=== PATIENT | male | born 1985 | race Caucasian/White ===

== ENCOUNTER → 2017-05-07 09:26 | Outpatient (CLI) | payer OTHER, SELFPAY ==
[2017-05-07 09:34] LABS: Microscopic, Urine URINE MICROSCOPIC (MICROSCOPIC)
[2017-05-07 10:58] LABS: Basophils # 0.1 K/mm3 (0-0.2); Basophils % 1.1 % (0.1-2.0); Eosinophils # 0.1 K/mm3 (0.0-0.4); Eosinophils % 1.7 % (0.1-12.0); Hematocrit 46.8 % (42.0-52.0); Hemoglobin 15.6 g/dL (14.1-18.0); Lymphocytes # 2.6 K/mm3 (0.7-4.5); Lymphocytes % 45.5 K/mm3 (10-50); Mean Corpuscular HGB Conc 33.3 g/dL (31.8-35.4); Mean Corpuscular Hemoglobin 28.9 pg (27.0-31.2); Mean Corpuscular Volume 86.6 fl (80-94); Mean Platelet Volume 7.3 fl (7.4-10.4); Monocytes # 0.3 K/mm3 (0.1-1.0); Monocytes % 5.6 % (1.7-9.3); Neutrophils # 2.6 K/mm3 (1.8-7.8); Platelet Count 402 K/mm3 (142-424); Red Blood Count 5.41 M/mm3 (4.60-6.20); Red Cell Distribution Width 13.3 % (11.5-17.5); White Blood Count 5.6 K/mm3 (4.8-10.8)
[2017-05-07 11:12] LABS: Alanine Aminotransferase 58 U/L (12-78); Albumin Level 4.2 gm/dL (3.4-5.0); Alkaline Phosphatase 78 U/L (46-116); Aspartate Amino Transferase 16 U/L (15-37); Bilirubin,Total 0.4 mg/dL (0.2-1.0); Blood Urea Nitrogen 17 mg/dL (7-18); Calcium 9.3 mg/dL (8.5-10.1); Carbon Dioxide 30 mmol/L (21.0-32.0); Chloride 103 mmol/L (98-107); Chol/HDL Ratio 6.9 (1-3.5); Cholesterol 243 mg/dL (140-200); Creatinine,Serum 1.09 mg/dL (0.70-1.30); Estimated Glomerular Filt Rate 78 ml/min (>60); GFR (African American) 94 ML/MIN (>60); Globulin 4.4 gm/dl (1.3-3.2); Glucose 99 mg/dL (74-106); HDL Cholesterol 35 mg/dL (27-67); LDL Cholesterol 163 mg/dL (0-130); Sodium 141 mmol/L (136-145); Total Protein,Serum 8.6 gm/dL (6.4-8.2); Triglycerides 226 mg/dL (30-200); VLDL Cholesterol 45 mg/dL (0-40)
[2017-05-07 11:25] LABS: Appearance,Urine CLEAR (Clear); Bilirubin,Urine Negative (Negative); Blood, Urine Negative (Negative); Color,Urine YELLOW (Yellow); Glucose,Urine (UA) Negative (Negative); Ketones,Urine Negative (Negative); Leukocyte Esterase,Urine Negative (Negative); Nitrate,Urine Negative (Negative); Protein,Urine Negative (Negative); Specific Gravity, Urine 1.015 (1.005-1.030); Urobilinogen,Urine 0.2 EU/dl (0.2)
[2017-05-07 14:16] LABS: Bacteria,Urine Trace /lpf; Squamous Epithelial Cell,Urine Occasional #/hpf (0-5)
[2017-05-08 18:51] LABS: Microalbumin, Urine <3.0 ug/mL (Not Estab.)
== END ==
PROVIDERS: PCP Physician Assistant; Visit Provider Physician Assistant
DX: I10 Essential (primary) hypertension (principal); E78.5 Hyperlipidemia, unspecified
CPT/HCPCS: 36415; 80053; 80061; 81001; 82043; 82947; 85025

== ENCOUNTER → 2019-02-22 09:04 | Outpatient (CLI) | payer BC, SELFPAY ==
--- NOTE | 2019-02-22 09:11 | US_ITS ---
PROCEDURE: US ABDOMEN LIMITED CLINICAL INDICATION: RUQ PAIN Right upper quadrant pain and nausea after eating COMPARISON: No exams were available for comparison FINDINGS: PANCREAS: Unremarkable. No obvious mass or abnormal fluid collection. No ductal dilatation LIVER: No focal liver lesions demonstrated. Homogeneous echogenicity. No intrahepatic biliary ductal dilatation evident. There is appropriate direction of blood flow within a non dilated portal vein. Fatty liver noted. RIGHT KIDNEY: Unremarkable. Normal size and echogenicity. No hydronephrosis GALLBLADDER: No gallstones, gallbladder wall thickening, pericholecystic fluid, or biliary dilatation. IMPRESSION: Fatty liver otherwise negative right upper quadrant ultrasound. No gallstones apparent Dictated by: Sreekanth Milton MD 02/22/2019 10:20 Electronically signed by Sreekanth Milton MD in [place] 02/22/2019 10:20
== END ==
PROVIDERS: PCP Family Medicine; Visit Provider Physician Assistant
DX: R10.11 Right upper quadrant pain (principal)
CPT/HCPCS: 76705

== ENCOUNTER → 2019-03-02 10:32 | Outpatient (CLI) | payer BC, SELFPAY ==
--- NOTE | 2019-03-02 10:38 | NM_ITS ---
PROCEDURE: NM HEPATOBILIARY W PHARM CLINICAL INDICATION: RUQ PAIN Right upper quadrant pain COMPARISON: No exams were available for comparison TECHNIQUE: DOSE: 8.38 mCi technetium mild view and 2 mcg of CCK. There was slight pain reported with CCK infusion FINDINGS: Homogeneous activity is present within the hepatic parenchyma. Activity is present in the gallbladder by 5 minutes. Activity is present in the small bowel by 20 minutes. The gallbladder ejection fraction is calculated to be 23 percent. Mild pain was reported with CCK infusion IMPRESSION: 1. No evidence of common or cystic duct obstruction. 2. Low gallbladder ejection fraction with some pain reported with CCK infusion which may be related to gallbladder dyskinesia The Dictated by: Sreekanth Milton MD 03/03/2019 09:37 Electronically signed by Sreekanth Milton MD in [place] 03/03/2019 09:37
== END ==
PROVIDERS: PCP Family Medicine; Visit Provider Physician Assistant
DX: R10.11 Right upper quadrant pain (principal)
CPT/HCPCS: 78227; A9537; J2805

== ENCOUNTER → 2019-11-24 11:15 | Outpatient (CLI) | payer BC, SELFPAY ==
--- NOTE | 2019-11-24 11:21 | XR_ITS ---
PROCEDURE: XR CERVICAL SPINE 5V CLINICAL INDICATION: ACUTE PAIN OF LEFT SHOULDER COMPARISON: No exams were available for comparison FINDINGS: There is straightening of the normal curvature. C1 through C7 appear intact. There is minor posterior osteophytic spurring at the C3-4 and C4-5 levels. Oblique films show essentially normal neural foramina right side, there is moderate neural foraminal narrowing at the C3-4 and C4-5 levels left side particularly C4-5. The prevertebral soft tissues are normal and the odontoid is normal. IMPRESSION: Moderate neural foraminal narrowing left side C3-4 and C4-5 secondary to a combination of posterior osteophytic spurring and spurring of the uncinate joints Dictated by: Dr. Cortez Giang MD 11/24/2019 12:21 Dr. Cortez Giang MD in [place] 11/24/2019 12:21
== END ==
PROVIDERS: PCP Family Medicine; Visit Provider Family Medicine
DX: M25.512 Pain in left shoulder (principal); M54.2 Cervicalgia
CPT/HCPCS: 72050

== ENCOUNTER → 2021-01-28 15:49 | Outpatient (CLI) | payer BC, SELFPAY ==
--- NOTE | 2021-01-28 15:53 | XR_ITS ---
PROCEDURE: XR KNEE LT 3V CLINICAL INDICATION: LEG PAIN COMPARISON: No exams were available for comparison FINDINGS: No fracture or dislocation. No lytic or blastic change. There is normal mineralization. The joint spaces are well-preserved. No significant degenerative/arthritic changes. No erosive changes evident. Other findings:None. IMPRESSION: No acute findings. Dictated by: Sreekanth Milton MD 01/28/2021 16:10 Sreekanth Milton MD in [place] 01/28/2021 16:10
== END ==
PROVIDERS: PCP Family Medicine; Visit Provider Nurse Practitioner Family
DX: M79.605 Pain in left leg (principal); M25.562 Pain in left knee
CPT/HCPCS: 73562

== ENCOUNTER → 2021-02-06 13:30 | Outpatient (CLI) | payer BC, SELFPAY ==
--- NOTE | 2021-02-06 13:38 | CA_ITS ---
APPROVED REPORT Left Lower Extremity Venous Study for DVT. Bottom Crane Operator: CT Indications Lower Extremity Pain: Left TWISTED ANKLE 4 WKS AGO, L CALF PAIN X 2-2 1/2 WKS Vein Imaging CFV (L): compressive, spontaneous, phasic, augmentation SFJ (L): compressive, spontaneous, phasic, augmentation FEM (L): compressive, spontaneous, phasic, augmentation POP (L): compressive, spontaneous, phasic, augmentation DFV (L): compressive, spontaneous, phasic, augmentation PTV (L): compressive, spontaneous, phasic, augmentation GSV (L): compressive, spontaneous, phasic, augmentation SSV (L): compressive, spontaneous, phasic, augmentation Peroneals (L):compressive, spontaneous, phasic, augmentation GAS (L): compressive, spontaneous, phasic, augmentation Findings LLE negative for DVT/SVT Vessels fully compressible. Conclusion LLE negative for DVT/SVT Vessels fully compressible. Electronically signed by : Sreekanth Milton MD 02/06/2021 17:01:45
== END ==
LOC: RT 13:31
PROVIDERS: PCP Family Medicine; Visit Provider Nurse Practitioner Family
DX: M79.662 Pain in left lower leg (principal)
CPT/HCPCS: 93971

== ENCOUNTER → 2021-06-09 17:04 | Outpatient (CLI) | payer BC, SELFPAY | PROVIDERS: PCP Physician Assistant; Visit Provider Physician Assistant | DX: R06.81 Apnea, not elsewhere classified (principal); R06.83 Snoring; R53.83 Other fatigue | CPT/HCPCS: G0399 ==

== ENCOUNTER 2022-06-20 14:18 | Emergency (ER) | payer BC, SELFPAY ==
[2022-06-20 14:40] VITALS: BP 127/87; PULSE 85; RESP 19; TEMP 37.5; O2SAT 99; BMI 36.8
--- NOTE | 2022-06-20 15:22 | EXP.UTC ---
Discharge Plan Disposition Patient Disposition: Home, Self-Care Condition: Good Prescriptions Prescriptions: New methylprednisolone [Medrol ([place])] 4 mg tablets,dose pack See Rx Instructions .Route .COMPLEX 6 Days Qty: 21 0RF Rx Instructions: taper pack; amoxicillin-pot clavulanate 875-125 mg Tablet 1 tab PO Q12H Qty: 20 0RF No Action rosuvastatin 20 mg tablet 20 mg PO DAILY Label Comments: TAKE 1 TABLET BY MOUTH EVERY DAY lisinopril-hydrochlorothiazide 10-12.5 mg tablet 1 tab PO DAILY Label Comments: TAKE 1 TABLET BY MOUTH EVERY DAY Referrals Follow up/Referrals: Ceeclia Roger PA [Primary Care Provider] - See instructions Activity Restrictions/Add. Instructions Additional Instructions/Restrictions: *Monitor Temp, Over the counter Motrin or Tylenol as directed/as needed Tylenol every 4 hours and Motrin every 6 hours (as long as your family doctor has told you that you can take it) for fever or pain. and straight to ER if unable to lower temp less than 101.0 after medication given Take medication as prescribed? *Sleep elevated *Humidifier/Vaporizer Follow up if no improvement or any worsening of symptoms Follow up IMMEDIATELY for new or worsening symptoms or no Noticeable improvement over the next 48-72 hours. 911 for difficulty breathing or swallowing Clinical Impressions Clinical Impression: Sinusitis Instructions Patient Instructions: DI for Sinusitis, Sinusitis Discharge ED Provider: Velia Moreno [facility] General Stated complaint: Congestion, drainage, sinus pain Mode of Arrival: Ambulatory Source of Information: Patient Limitations: No Limitations Time Seen by Provider: 06/20/22 15:22 Description of Symptoms (Recalled from Triage Doc. by RN): sinus pressure, cough, and sinus pain HEENT Symptoms (Recalled from RN notes): Yes Resp Symptoms (Recalled from RN notes): No Skin Symptoms (Recalled from RN notes): No MS Symptoms (Recalled from RN notes): No Functional Status (Recalled from RN notes): n/a History of Present Illness Provider Complaint: Patient states that for over a week he has been having sinus pain and pressure with a cough that has not improved States that today he was still having the pressure so he came in to get checked Related Data Home Medications Medication Instructions Recorded Confirmed rosuvastatin 20 mg tablet 20 mg PO DAILY , 06/25/21 06/20/22 lisinopril 10 1 tab PO DAILY . 06/20/22 06/20/22 mg-hydrochlorothiazide 12.5 mg tablet Previous Rx's Medication Instructions Recorded amoxicillin 875 mg-potassium 1 tab PO Q12H #20 tabs 06/20/22 clavulanate 125 mg tablet methylprednisolone 4 mg tablets in See Rx Instructions .Route 06/20/22 a dose pack (Medrol ([place])) .COMPLEX 6 days #21 tabs Allergies Allergy/AdvReac Type Severity Reaction Status Date / Time sulfamethoxazole Allergy Unknown Verified 06/20/22 15:03 [From ] trimethoprim [From ] Allergy Unknown Verified 06/20/22 15:03 Worker's Comp Is this a Worker's Comp case?: No [facility] Disclaimer: The information contained in this section may have been updated after the patient was seen, as this information can be updated by other users. Social History Smoking Status: Never smoker alcohol intake: current substance use type: denies use current occupational status: employed Travel in the last 8 weeks: None household members: family housing: house ROS Obtained: Yes All systems reviewed & no additional complaints except as documented and Yes Systems reviewed as appropriate & no additional complaints except as documented ENT Ears, Nose, Mouth, and Throat: Reports system reviewed and no additional complaints, except as documented, Reports as per HPI, Reports sinus pain and Reports sinus pressure Cardiovascular Cardiovascular: Reports system reviewed and no additional complaints, except as documented and Reports as per HPI
[2022-06-20 15:42] VITALS: BP 127/81; PULSE 85; RESP 19; TEMP 37.5; O2SAT 99
== END 2022-06-20 15:42 | disposition home or self-care (01) ==
PROVIDERS: Emergency Provider Nurse Practitioner; PCP Physician Assistant
DX: J01.90 Acute sinusitis, unspecified (principal); R50.9 Fever, unspecified
CPT/HCPCS: 99212; 99214; G0463

== ENCOUNTER 2023-10-03 16:20 | Emergency (ER) | payer BC, SELFPAY ==
[2023-10-03 16:22] VITALS: BP 140/87; PULSE 79; RESP 18; TEMP 36.9; O2SAT 99; BMI 35.2
[2023-10-03 16:59] LABS: Microscopic, Urine URINE MICROSCOPIC (MICROSCOPIC)
--- NOTE | 2023-10-03 16:59 | ECG_ITS ---
APPROVED REPORT Exam: Resting ECG HR:72 bpm ECG Measurements Heart Rate 72 AXES OR 152 P 26 QRSd 93 QRS 22 QT 363 T 13 QTc 387 Conclusion SINUS RHYTHM NORMAL ECG Electronically signed by : BRUNA ROSAS, 10/04/2023 00:32:15
[2023-10-03] MEDS: BELLADONNA ALKALOIDS 60 ML ML PO (17:01)
[2023-10-03] MEDS: LACTATED RINGERS 1000ML 1,000 ML 999 ML IV (17:01)
[2023-10-03] MEDS: ACETAMINOPHEN 500MG TAB 1000 MG PO (17:01)
[2023-10-03] MEDS: KETOROLAC 30MG/ML VIAL 15 MG IV (17:01)
[2023-10-03] MEDS: ONDANSETRON 4MG/2ML VIAL 4 MG IV (17:02)
[2023-10-03 17:06] LABS: Appearance,Urine CLEAR (Clear); Bilirubin,Urine Negative (Negative); Blood, Urine Negative (Negative); Color,Urine YELLOW (Yellow); Glucose,Urine (UA) Negative (Negative); Ketones,Urine Negative (Negative); Leukocyte Esterase,Urine Negative (Negative); Nitrate,Urine Negative (Negative); Protein,Urine Negative (Negative); Specific Gravity, Urine >= 1.030 (1.005-1.030); Urobilinogen,Urine 0.2 EU/dl (0.2)
[2023-10-03 17:07] LABS: Alanine Aminotransferase 73 U/L (12-78); Albumin Level 4.7 g/dl (3.5-5.0); Albumin/Globulin Ratio 1.2 (1.1-1.8); Alkaline Phosphatase 70 U/L (38-126); Anion Gap 10.4 mEq/L (5-15); Aspartate Amino Transferase 49 U/L (17-59); Bilirubin,Total 0.7 mg/dl (0.2-1.3); Blood Urea Nitrogen 19 mg/dl (9-20); Calcium 9.8 mg/dl (8.4-10.2); Carbon Dioxide 29 mmol/L (22.0-30.0); Chloride 105 mmol/L (98-107); Creatinine Clearance Estimated 119 mL/min (50-200); Estimated Glomerular Filt Rate 67 ml/min (>60); GFR (African American) 82 ML/MIN (>60); Globulin 3.9 g/dL (1.3-3.2); Glucose 115 mg/dl (74-100); Lipase 63 U/L (23-300); Potassium 4.4 mmoL/L (3.5-5.1); Sodium 140 mmol/L (136-145); Total Protein,Serum 8.6 g/dl (6.3-8.2)
--- NOTE | 2023-10-03 17:09 | ED_ITS ---
Discharge Plan Disposition Patient Disposition: Home, Self-Care Condition: Good Prescriptions Prescriptions: New pantoprazole 40 mg tablet,delayed release (DR/EC) 40 mg PO DAILY Qty: 30 1RF alum-mag hydroxide-simeth [Maalox Advanced] 200-200-20 mg/5 mL suspension 5 ml PO Q3H PRN (Reason: dyspepsia) Qty: 3000 0RF No Action rosuvastatin 20 mg tablet 20 mg PO DAILY Patient Comments: TAKE 1 TABLET BY MOUTH EVERY DAY lisinopril-hydrochlorothiazide 10-12.5 mg tablet 1 tab PO DAILY Patient Comments: TAKE 1 TABLET BY MOUTH EVERY DAY methylprednisolone [Medrol ([place])] 4 mg tablets,dose pack See Rx Instructions .Route .COMPLEX 6 Days Qty: 21 0RF Rx Instructions: taper pack; amoxicillin-pot clavulanate 875-125 mg Tablet 1 tab PO Q12H Qty: 20 0RF Referrals Follow up/Referrals: Miriam Torres MD [Primary Care Provider] - See instructions Activity Restrictions/Add. Instructions Additional Instructions/Restrictions: You were evaluated in the emergency department today. Please warehouse picker your prescriptions at the pharmacy and take them as prescribed. Only use the Maalox as needed for severe intractable acid reflux type symptoms. Follow-up closely with your primary care provider. Return to the emergency department for new or worsening symptoms. Clinical Impressions Clinical Impression: Abdominal pain, epigastric, Gastritis Stand Alone Forms Stand Alone Forms: Work/School Release Instructions Patient Instructions: DI for Gastritis, DI for Acute Abdominal Pain Print Language Print Language: Angolan Discharge ED Provider: Radha Lucas General Adult HPI General Chief complaint: Abdominal Pain Stated complaint: abd pain vomiting Time Seen by Provider: 10/03/23 16:44 Mode of Arrival: Ambulatory Source of Information: Patient Limitations: No Limitations Description of Symptoms (Recalled from ER Triage Doc. by RN): Patient reports upper abd pain started today. Radiates to the upper right abdomen at times. Reports nasuea and vomiting. Rates pain 09/30. History of Present Illness HPI narrative: This patient is a 37-year-old male who reports history of acid reflux for which he takes [id number] Prilosec presenting with concern for epigastric abdominal pain. He notes that it started today. It radiates into his right upper abdomen at times. He states that he has had an issue with his gallbladder in the past, but he has not had surgical removal. He has had nausea and vomiting as well, but no fevers. No changes in bowel movements. Eating seems to make it worse. Related Data Home Medications ?Medication ?Instructions ?Recorded ?Confirmed rosuvastatin 20 mg tablet 20 mg PO DAILY , 06/25/21 06/20/22 lisinopril 10 1 tab PO DAILY . 06/20/22 06/20/22 mg-hydrochlorothiazide 12.5 mg tablet Previous Rx's ?Medication ?Instructions ?Recorded amoxicillin 875 mg-potassium 1 tab PO Q12H #20 tabs 06/20/22 clavulanate 125 mg tablet methylprednisolone 4 mg tablets in See Rx Instructions .Route 06/20/22 a dose pack (Medrol ([place])) .COMPLEX 6 days #21 tabs aluminum-mag hydroxide-simethicone 5 ml PO Q3H PRN dyspepsia #3,000 mL 10/03/23 200 mg-200 mg-20 mg/5 mL oral susp (Maalox Advanced) pantoprazole 40 mg tablet,delayed 40 mg PO DAILY #30 tabs 10/03/23 release Allergies Allergy/AdvReac Type Severity Reaction Status Date / Time sulfamethoxazole Allergy Unknown Verified 06/20/22 15:03 [From SEPTRA] trimethoprim [From SEPTRA] Allergy Unknown Verified 06/20/22 15:03 [facility] Disclaimer: The information contained in this section may have been updated after the patient was seen, as this information can be updated by other users. Social History Smoking Status: Never smoker alcohol intake: current alcohol intake frequency: a few times a month substance use type: denies use current occupational status: employed Travel in the last 8 weeks: None household members: family housing: house ROS Obtained: Yes All systems reviewed & no additional complaints except as documented Physical Exam General General appearance: alert and in no apparent distress Head Head exam: atraumatic and normocephalic Eye Eye exam: Present normal appearance, PERRL and EOMI ENT ENT exam: Present normal exam, normal oropharynx, mucous membranes moist and normal external ear exam Neck Neck exam: Present normal inspection, full ROM and trachea midline; Absent tenderness Chest Chest inspection: Present normal inspection and symmetric chest wall rise; Absent tenderness Respiratory Respiratory exam: Present normal lung sounds bilaterally; Absent respiratory distress, wheezes, stridor or accessory muscle use Cardiovascular Cardiovascular exam: Present regular rate and normal rhythm Abdominal Exam Abdominal exam: Present soft and tenderness (Epigastric); Absent distention, guarding, rebound, rigidity or Harrison's sign Extremities Exam Extremities exam: Present normal inspection, full ROM and normal capillary refill; Absent tenderness or edema Back Exam Back exam: Present normal inspection and full ROM; Absent tenderness Neurological Exam Neurological exam: Present alert, oriented X3, CN II-XII intact and normal gait; Absent motor sensory deficit Psychiatric Psychiatric exam: Present normal affect and normal mood Skin Skin exam: Present warm and dry Medical Decision Making Medical Records Medical records reviewed: Yes I reviewed the patient's medical records. Manjinder Inquiry Pt receiving controlled substance: No Vital Signs: 10/03/23 16:22 10/03/23 18:40 Temperature 98.4 F 98.7 F Temperature Source Oral Oral Pulse Rate 82 Pulse Rate [Right Radial] 79 Respiratory Rate 18 18 Blood Pressure 114/82 Blood Pressure [Right Arm] 140/87 Blood Pressure Mean [Right Arm] 104 Blood Pressure Source Automatic Cuff Blood Pressure Source [Right Arm] Automatic Cuff Blood Pressure Position Sitting Blood Pressure Position [Right Arm] Sitting 02 Sat by Pulse Oximetry 99 Oxygen Delivery Method Room Air Room Air Lab Data Lab results reviewed: Yes I reviewed the patient's lab results. Lab Results 10/03/23 16:31: Urine Color Yellow, Urine Appearance Clear, Urine pH 6.0, Ur Specific Ly[place] >= 1.030, Urine Protein Negative, Urine Glucose (UA) Negative, Urine Ketones Negative, Urine Blood Negative, Urine Nitrate Negative, Urine Bilirubin Negative, Urine Urobilinogen 0.2, Ur Leukocyte Esterase Negative, Urine RBC Occasional, Urine WBC Occasional, Ur Squamous Epith Cells Occasional, Urine Mucus 3+ 10/03/23 16:38: WBC 9.2, RBC 5.78, Hgb 16.8, Hct 53.5 H, MCV 92.5, MCH 29.0, M CHC 31.4 L, RDW 14.3, Plt Count 273, MPV 8.3, Neut % (Auto) 74.9, Lymph % (Auto) 19.2, [place] % (Auto) 4.7, Eos % (Auto) 0.4, Baso % (Auto) 0.8, Neut # (Auto) 6.9, Lymph # (Auto) 1.8, [place] # (Auto) 0.4, Eos # (Auto) 0.0, Baso # (Auto) 0.1, Sodium 140, Potassium 4.4, Chloride 105, Carbon Dioxide 29, Anion Gap 10.4, BUN 19, Creatinine 1.20, Estimated Creat Clear 119, Estimated GFR 67, Est GFR ( Amer) 82, Glucose 115 H, Calcium 9.8, Total Bilirubin 0.7, AST 49, ALT 73, Alkaline Phosphatase 70, Total Protein 8.6 H, Albumin 4.7, Globulin 3.9 H, Albumin/Globulin Ratio 1.2, Lipase 63 10/03/23 16:38 10/03/23 16:38 Orders (Tests/Meds): ED MEDICATIONS Discontinued Medications Generic Name Dose Route Start Last Admin Trade Name Freq PRN Reason Stop Dose Admin Acetaminophen 1,000 mg 10/03/23 16:53 10/03/23 17:01 Acetaminophen 500mg Tab PO 10/03/23 16:54 1,000 mg ONCE ONE Administration Belladonna Alkaloids 60 ml 10/03/23 16:53 10/03/23 17:01 Belladonna Alkaloids 60 Ml Ml PO 10/03/23 16:54 60 ml ONCE ONE Administration Lactated Ringer's 1,000 mls @ 999 mls/hr 10/03/23 16:53 10/03/23 17:01 Lactated Ringer's 1000 Ml Bag IV 10/03/23 17:53 999 mls/hr .Q1H1M ONE Administration Ketorolac Tromethamine 15 mg 10/03/23 16:53 10/03/23 17:01 Ketorolac 30mg/Ml Vial IV 10/03/23 16:54 15 mg ONCE ONE Administration Ondansetron HCl 4 mg 10/03/23 16:53 10/03/23 17:02 Ondansetron 4mg/2ml Vial IV 10/03/23 16:54 4 mg ONCE ONE Administration ORDERS Category Date Time Status CBC w/Auto Diff [Complete Blood Count Auto Diff] Stat Lab 10/03/23 16:38 Completed CMP [Comprehensive Metabolic Panel] Stat Lab 10/03/23 16:38 Completed Lipase Stat Lab 10/03/23 16:38 Completed UA [Urinalysis and Microscopic] Stat Lab 10/03/23 16:31 Completed ECG Data Tracing #1: I reviewed this ECG and interpreted as documented below: Normal sinus rhythm with ventricular rate of [address] changes concerning for ischemia. Normal axis and intervals ECG initial impression date: 10/03/23 Medical Decision Narrative: In summary, this patient is a 37-year-old male presenting to the Emergency Department for evaluation of epigastric abdominal pain, nausea, and vomiting. Differential diagnoses considered include but are not limited to pancreatitis, cholecystitis, hepatitis, GERD, gastroenteritis. Ruling out the most morbid conditions drove assessment. It should be noted patient's history includes GERD which is not at goal therapy. This complicates all aspects of care by increasing patient's risk for morbidity. On exam, the patient is well-appearing. He has epigastric tenderness, but no right upper quadrant tenderness. Negative Harrison sign. Workup included CBC, CMP, lipase, urinalysis, EKG. EKG obtained is reassuring with no evidence of cardiac dysfunction. Patient was given a bolus of IV fluids as well as IV Toradol, oral Tylenol, IV Zofran, and oral GI cocktail. On reassessment, the patient is resting comfortably with significantly improved symptoms. Labs are reassuring with no significant leukocytosis, normal liver enzymes, normal lipase. He is able to tolerate oral intake without difficulty on reassessment. I feel he likely has gastritis/peptic ulcer disease. At this time, I feel it is appropriate for discharge home with prescriptions for pantoprazole and Maalox to treat presumed gastritis. Strict return precautions were given and the patient was discharged after all questions were answered. Critical Care Critical Care Time Critical Care Time: No
[2023-10-03 17:18] LABS: RBC,Urine Occasional #/hpf (0-3); Squamous Epithelial Cell,Urine Occasional #/hpf (0-5); WBC,Urine Occasional #/hpf (0-3)
[2023-10-03 17:19] LABS: Mucus,Urine 3+ /lpf
[2023-10-03 18:19] LABS: Basophils # 0.1 K/mm3 (0-0.2); Basophils % 0.8 % (0.1-2.0); Eosinophils % 0.4 % (0.1-12.0); Hematocrit 53.5 % (42.0-52.0); Hemoglobin 16.8 g/dL (14.1-18.0); Lymphocytes # 1.8 K/mm3 (0.7-4.5); Lymphocytes % 19.2 % (10-50); Mean Corpuscular HGB Conc 31.4 g/dL (31.8-35.4); Mean Corpuscular Volume 92.5 fl (80-94); Mean Platelet Volume 8.3 fl (7.4-10.4); Monocytes # 0.4 K/mm3 (0.1-1.0); Monocytes % 4.7 % (1.7-9.3); Neutrophils # 6.9 K/mm3 (1.8-7.8); Neutrophils % 74.9 % (37.0-80.0); Platelet Count 273 K/mm3 (142-424); Red Blood Count 5.78 M/mm3 (4.60-6.20); Red Cell Distribution Width 14.3 % (11.5-17.5); White Blood Count 9.2 K/mm3 (4.8-10.8)
[2023-10-03 18:40] VITALS: BP 114/82; PULSE 82; RESP 18; TEMP 37.1; O2SAT 99
== END 2023-10-03 18:43 | disposition home or self-care (01) ==
PROVIDERS: Emergency Provider Emergency Medicine; PCP Family Medicine Addiction Medicine
DX: R10.13 Epigastric pain (principal); K29.70 Gastritis, unspecified, without bleeding; R11.2 Nausea with vomiting, unspecified
CPT/HCPCS: 80053; 81001; 83690; 85025; 93005; 96361; 96374; 96375; 99284; J1885; J2405; J7120

== ENCOUNTER 2024-02-21 11:35 | Emergency (ER) | payer BC, SELFPAY ==
[2024-02-21 11:45] VITALS: BP 145/90; PULSE 87; RESP 19; TEMP 36.8; O2SAT 98; BMI 36.1
--- NOTE | 2024-02-21 12:01 | ED_ITS ---
Discharge Plan Disposition Patient Disposition: Home, Self-Care Condition: Good Prescriptions Prescriptions: New indomethacin 50 mg capsule 50 mg PO TID PRN (Reason: gout) Qty: 15 0RF Rx Instructions: administer with food or milk, take one capsule every 8 hours for 3-5 days until symptoms and pain subside No Action lisinopril 20 mg tablet 20 mg PO DAILY Patient Comments: TAKE 1 TABLET BY MOUTH EVERY DAY rosuvastatin [Crestor] 40 mg Tablet 40 mg PO DAILY Referrals Follow up/Referrals: Miriam Torres MD [Primary Care Provider] - See instructions Activity Restrictions/Add. Instructions Additional Instructions/Restrictions: Start Indomethacin tonight DO not take any Ibuprofen with Indomethacin Take as directed for 3-5 days until pain subsides Follow up with your Family Doctor if no improvement Clinical Impressions Clinical Impression: Pseudogout Stand Alone Forms Stand Alone Forms: Work/School Release Instructions Patient Instructions: DI for Pseudogout, Indomethacin Print Language Print Language: [place] Discharge ED Provider: Velia Moreno [facility] [place] HPI General Stated complaint: L foot pain Mode of Arrival: Ambulatory Source of Information: Patient Limitations: No Limitations Time Seen by Provider: 02/21/24 12:01 Description of Symptoms (Recalled from Triage Doc. by RN): PATIENT C/O PAIN TO LEFT GREAT TOE X 5 DAYS, NO KNOWN INJURY HEENT Symptoms (Recalled from RN notes): No Resp Symptoms (Recalled from RN notes): No Skin Symptoms (Recalled from RN notes): No MS Symptoms (Recalled from RN notes): Yes Functional Status (Recalled from RN notes): WNL History of Present Illness Provider Complaint: Patient states that he has been having pain and stiffness in his left great toe for the last 5 days States he has drink more alcohol than usual and eat red meat over the holiday concerned with gout Denies known injury, denies hitting toe Related Data Home Medications ?Medication ?Instructions ?Recorded ?Confirmed lisinopril 20 mg tablet 20 mg PO DAILY 02/21/24 02/21/24 rosuvastatin 40 mg tablet (Crestor) 40 mg PO DAILY 02/21/24 02/21/24 Previous Rx's ?Medication ?Instructions ?Recorded indomethacin 50 mg capsule 50 mg PO TID PRN gout #15 caps 02/21/24 Allergies Allergy/AdvReac Type Severity Reaction Status Date / Time sulfamethoxazole (From Allergy Unknown Verified 06/20/22 15:03 ) trimethoprim (From ) Allergy Unknown Verified 06/20/22 15:03 Worker's Comp Is this a Worker's Comp case?: No [facility] Disclaimer: The information contained in this section may have been updated after the patient was seen, as this information can be updated by other users. Medical History (Updated 02/21/24 @ 12:38 by Velia Moreno APRN) History of gastroesophageal reflux (GERD) Hyperlipidemia Hypertension Social History Smoking Status: Never smoker alcohol intake: current alcohol intake frequency: a few times a month substance use type: denies use current occupational status: employed Travel in the last 8 weeks: None household members: family housing: house Have you lived/traveled outside [place] in past 30 days?: No Contact w/someone who lives/traveled outside [place] past 30 days?: No Exposure to someone with infectious disease in past 14 days?: No Do you have a fever (greater than 100.4 F or 38 C)?: No Have you tested positive for COVID-19: No Exposed to someone with COVID-19 in past 14 days?: No Do you have a sore throat?: No Do you have a cough?: No Do you have any weakness?: No Do you have any diarrhea?: No Are you experiencing any unusual bleeding?: No Do you have any muscle aches/pain?: No Do you have any abdominal pain?: No Are you experiencing loss of taste or smell?: No ROS Obtained: Yes All systems reviewed & no additional complaints except as documented and Yes Systems reviewed as appropriate & no additional complaints except as documented Constitutional Constitutional: Reports system reviewed and no additional complaints, except as documented and Reports as per HPI ENT Ears, Nose, Mouth, and Throat: Reports system reviewed and no additional complaints, except as documented and Reports as per HPI Cardiovascular Cardiovascular: Reports system reviewed and no additional complaints, except as documented and Reports as per HPI Respiratory Respiratory: Reports system reviewed and no additional complaints, except as documented and Reports as per HPI Gastrointestinal Gastrointestingal: Reports system reviewed and no additional complaints, except as documented and as per HPI Musculoskeletal Musculoskeletal: Reports system reviewed and no additional complaints, except as documented, Reports as per HPI and Reports other Comments: pain and stiffness in left great toe x 5 days denies known injury Physical Exam General General appearance: alert and in no apparent distress Respiratory Respiratory exam: Present normal lung sounds bilaterally; Absent respiratory distress or wheezes Cardiovascular Cardiovascular exam: Present regular rate and normal heart sounds Expanded Lower Extremity Exam Left: Foot/toe exam: Present tenderness, swelling (mild) and erythema (mild) Top foot image: 2 1. reports tenderness, pain and stiffness pain worse with movement no obvious bruising noted mild swelling and redness noted Neurological Exam Neurological exam: Present alert, oriented X3 and normal gait Medical Decision Making Medical Records Screening: Per USPSTF and CDC recommendations, given the prevalence of disease in our region, it is our hospital?s policy to screen for HIV and viral Hepatitis for all patients aged 18 and over and those with ongoing risk factors. Manjinder Inquiry Pt receiving controlled substance: No Manjinder was queried for this patient: No Vital Signs: 02/21/24 11:45 Temperature 98.3 F Temperature Source Oral Pulse Rate [Left Brachial] 87 Respiratory Rate 19 Blood Pressure [Left Arm] 145/90 H Blood Pressure Mean [Left Arm] 108 Blood Pressure Source [Left Arm] Automatic Cuff Blood Pressure Position [Left Arm] Sitting 02 Sat by Pulse Oximetry 98 Oxygen Delivery Method Room Air Lab Data Lab results reviewed: Yes I reviewed the patient's lab results. Orders (Tests/Meds): ORDERS Category Date Time Status Uric Acid Stat Lab 02/21/24 11:51 Received Medical Decision Narrative: discussed xray patient declined
[2024-02-21 12:08] LABS: Uric Acid 7.5 mg/dl (3.5-8.5)
[2024-02-21] MEDS: KETOROLAC 60MG/2ML VIAL 60 MG IM (12:25)
[2024-02-21] MEDS: METHYLPREDNISOLONE SOD SUCC 125MG VIAL 125 MG IM (12:25)
[2024-02-21 12:29] VITALS: BP 145/90; PULSE 87; RESP 19; TEMP 36.8; O2SAT 98
== END 2024-02-21 12:45 | disposition home or self-care (01) ==
LOC: ER 11:37 → UTC 11:38
PROVIDERS: Emergency Provider Nurse Practitioner; PCP Family Medicine Addiction Medicine
DX: M11.20 Other chondrocalcinosis, unspecified site (principal); M79.675 Pain in left toe(s)
CPT/HCPCS: 84550; 99212; G0381; J1885; J2919